=== PATIENT | female | born 1975 | race African-American/Black ===

== ENCOUNTER 2016-06-24 10:45 | Emergency (ER) | payer SELFPAY ==
[2016-06-24] MEDS ORDERED: LISINOPRIL5 MG PO (10:52)
[2016-06-24] MEDS ORDERED: NEXIUM40 MG PO (10:52)
[2016-06-24] MEDS ORDERED: METFORMIN500 MG PO (10:52)
[2016-06-24] MEDS ORDERED: HYDROCODONE BIT1 T11 PO (12:26)
[2016-06-24] MEDS ORDERED: CYCLOBENZAPRINE10 MG PO (12:26)
== END 2016-06-24 12:48 | disposition home or self-care (01) ==
LOC: ED 10:45
DX: M54.16 Radiculopathy, lumbar region (principal); Z88.0 Allergy status to penicillin; Z88.6 Allergy status to analgesic agent; Z79.899 Other long term (current) drug therapy